=== PATIENT | female | born 1990 | race Caucasian/White ===

== ENCOUNTER 2019-08-15 13:02 | Emergency (ER) | payer BC, SELFPAY ==
[2019-08-15 13:22] VITALS: BP 141/95; PULSE 106; RESP 20; TEMP 36.7; O2SAT 98; BMI 32.1
--- NOTE | 2019-08-15 13:32 | HMH.EDUTC ---
[facility] [place] Disposition Clinical Impression: Cyst Disposition: Home, Self-Care Condition on Discharge: Good Additional Instructions: Follow up in ENT clinic tomorrow with Dr Moreno *Return if needed Straight to ER if any life threatening symptoms FOllow up with family doctor if needed Referrals: Calin Krishna MD [Primary Care Provider] - As needed Cesar Moreno MD [Staff Physician] - 08/16/19 12:30 pm Time of Disposition: 13:34 Medical Decision Making - Cl Inquiry Pt receiving controlled substance: No Cl was queried for this patient: No Vital Signs: 08/15/19 13:22 Temperature 98.0 F Temperature Source Oral Pulse Rate [Right Brachial] 106 H Respiratory Rate 20 Blood Pressure [Right Arm] 141/95 H Blood Pressure Mean [Right Arm] 110 Blood Pressure Source [Right Arm] Automatic Cuff Blood Pressure Position [Right Arm] Sitting 02 Sat by Pulse Oximetry 98 Oxygen Delivery Method Room Air - Physician Consults Physician Consulted: Josh Time: 13:37 Reason -: ENT Eval/Care Comment/Response: Spoke with La Lawson from Dr Elizabeth office about patient and finding patient given appointment on FridayAugust 15 at 1230 in the office [facility] [place] HPI - General Stated complaint: knot behind R ear Time Seen by Provider: 08/15/19 13:32 Mode of Arrival: Ambulatory Source of Information: Patient Limitations: No Limitations Description of Symptoms (Recalled from Triage Doc. by RN): Pt reports having an earache for a couple of hours and a mass on inferior mastoid procress that is no-movable, no other symptoms reports at this time. HEENT Symptoms (Recalled from RN notes): Yes Resp Symptoms (Recalled from RN notes): No Skin Symptoms (Recalled from RN notes): No MS Symptoms (Recalled from RN notes): No Functional Status (Recalled from RN notes): NA - History of Present Illness Provider Complaint: Patient states that she has pain on her right mastoid area a couple of weeks ago and then went away States that last night she noticed swollen hard area behind her right ear that is moveable States that it doesnt hurt or anything and not having any pain in her ear at this time but wanted to have it checked - Related Data Home Medications Medication Instructions Recorded Confirmed No Known Home Medications 03/02/18 03/02/18 Allergies Allergy/AdvReac Type Severity Reaction Status Date / Time No Known Allergies Allergy Verified 08/15/19 13:29 - Worker's Comp Is this a Worker's Comp case?: No H History - Hepatitis A Screen Drug use history?: No High risk sexual behaviors?: No History of sexually transmitted infection?: No Currently employed?: No Childcare worker?: No Do you have indoor plumbing?: Yes Do you have electricity?: Yes Attestation statement:: This patient has been screened for Hepatitis A risk factors. I have reviewed the patient's past medical history: Yes 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: Denies:: Cancer, Diabetes Mellitus Type 1, Diabetes Mellitus Type 2, MRSA Amputation: No Fractures: No - Social History Alcohol Intake: never ROS Obtained: Yes All systems reviewed & no additional complaints, Yes Systems reviewed as appropriate & no additional complaints - ENT Ears, Nose, Mouth, and Throat: Reports system reviewed and no additional complaints, except as docu - Cardiovascular Cardiovascular: Reports system reviewed and no additional complaints, except as docu - Respiratory Respiratory: Yes system reviewed and no additional complaints, except as docu - Gastrointestinal Gastrointestingal: Reports: system reviewed and no additional complaints, except as docu Physical Exam - General General appearance: alert, in no apparent distress - ENT ENT exam: Present: other (hard area noted on right mastoid bone, no redness no warmth) - Respiratory Respiratory exam: Present: normal lung sounds bilaterally. Absent: respiratory distress - Cardiovascular Cardiovascular exam: Present: tachycardia. Abs
[2019-08-15 13:50] VITALS: BP 140/71; PULSE 106; RESP 18; TEMP 36.7; O2SAT 100
== END 2019-08-15 13:52 | disposition home or self-care (01) ==
PROVIDERS: Emergency Provider Nurse Practitioner; PCP Family Medicine
DX: D23.21 Other benign neoplasm of skin of right ear and external auricular canal (principal)
CPT/HCPCS: 99201

== ENCOUNTER 2021-05-26 10:56 | Emergency (ER) | payer BC, SELFPAY ==
[2021-05-26 11:15] VITALS: BP 127/83; PULSE 68; RESP 18; TEMP 36.8; O2SAT 100; BMI 33.9
[2021-05-26 11:33] VITALS: BP 127/83; PULSE 68; RESP 18; TEMP 36.8; O2SAT 100
--- NOTE | 2021-05-26 11:45 | HMH.EDUTC ---
[facility] [place] Clinical Impression: Sinusitis Qualifiers: Sinusitis location: unspecified location Chronicity: unspecified Qualified Code(s): J32.9 - Chronic sinusitis, unspecified Disposition: Home, Self-Care Condition on Discharge: Good Instructions: Sinusitis, DI for Sinusitis Additional Instructions: *Monitor Temp, Over the counter Motrin or Tylenol as directed/as needed Tylenol every 4 hours and Motrin every 6 hours (as long as your family doctor has told you that you can take it) for fever or pain. and straight to ER if unable to lower temp less than 101.0 after medication given *Warm salt water gargles may help to soothe the throat *Throat Lozenges *Warm fluids like tea with honey may help to soothe the throat *Sleep elevated *Humidifier/Vaporizer *Flonase 2 sprays in each nostril daily but be aware that it may take 2-3 days before you notice improvement Follow up IMMEDIATELY for new or worsening symptoms or no Noticeable improvement over the next 48-72 hours. 911 for difficulty breathing or swallowing Prescriptions: Amoxicillin/Potassium Clav [Amox-Clav 875-125 mg Tablet] 1 tab PO BID #20 tab Transmission Status: Pending to Clinic [facility] predniSONE [Deltasone 10mg tablet] 10 mg PO BID 4 Days #8 tab Transmission Status: Pending to Clinic [facility] Referrals: Calin Krishna MD [Primary Care Provider] - As needed Time of Disposition: 11:59 Medical Decision Making - Cl Inquiry Pt receiving controlled substance: No Cl was queried for this patient: No Vital Signs: 05/26/21 11:15 05/26/21 11:33 Temperature 98.3 F 98.3 F Temperature Source Oral Pulse Rate 68 Pulse Rate [Right Brachial] 68 Respiratory Rate 18 18 Blood Pressure 127/83 Blood Pressure [Right Arm] 127/83 Blood Pressure Mean [Right Arm] 97 Blood Pressure Source [Right Arm] Automatic Cuff Blood Pressure Position [Right Arm] Sitting 02 Sat by Pulse Oximetry 100 Oxygen Delivery Method Room Air [facility] [place] - General Stated complaint: Congestion Time Seen by Provider: 05/26/21 11:45 Mode of Arrival: Ambulatory Source of Information: Patient Limitations: No Limitations Description of Symptoms (Recalled from Triage Doc. by RN): PATIENT C/O GREEN SINUS DRAINAGE, HEADACHE, EYE DISCHARGE, PRESSURE IN RIGHT EAR, AND SORE THROAT X 3 DAYS HEENT Symptoms (Recalled from RN notes): Yes Resp Symptoms (Recalled from RN notes): No Skin Symptoms (Recalled from RN notes): No MS Symptoms (Recalled from RN notes): No Functional Status (Recalled from RN notes): WNL - History of Present Illness Provider Complaint: Patient states that she has been having sinus pain and pressure and pain behind the eyes for close to a week if not longer and feels like she gets when she has a sinus infection States that it has continued to get worse so she came in today to get checked out - Related Data Home Medications Medication Instructions Recorded Confirmed NIFEdipine [Nifedipine ER] 30 mg PO DAILY 05/26/21 05/26/21 Previous Rx's Medication Instructions Recorded Amoxicillin/Potassium Clav 1 tab PO BID #20 tab 05/26/21 [Amox-Clav 875-125 mg Tablet] predniSONE [Deltasone 10mg tablet] 10 mg PO BID 4 Days #8 tab 05/26/21 Allergies Allergy/AdvReac Type Severity Reaction Status Date / Time No Known Allergies Allergy Verified 08/16/19 12:29 - Worker's Comp Is this a Worker's Comp case?: No [facility] History - Hepatitis A Screen Drug use history?: No High risk sexual behaviors?: No History of sexually transmitted infection?: No Currently employed?: No Childcare worker?: No Do you have indoor plumbing?: Yes Do you have electricity?: Yes Attestation statement:: This patient has been screened for Hepatitis A risk factors. I have reviewed the patient's past medical history: Yes 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: Reports:: Hypertension Denies:: Cancer, Diabetes Mellitus Type 1, Diabetes Mellitus Type 2, MRSA Laterality Cases: Bila
== END 2021-05-26 12:04 | disposition home or self-care (01) ==
PROVIDERS: Emergency Provider Nurse Practitioner; PCP Family Medicine
DX: J32.9 Chronic sinusitis, unspecified (principal); I10 Essential (primary) hypertension
CPT/HCPCS: 99212; G0463

== ENCOUNTER 2021-12-29 10:02 | Emergency (ER) | payer BC, SELFPAY ==
[2021-12-29 10:33] LABS: UTC Strep Screen (Rapid) Negative (Negative)
[2021-12-29 10:34] VITALS: BP 139/93; PULSE 101; RESP 18; TEMP 37.3; O2SAT 98; BMI 32.1
[2021-12-29 10:40] LABS: UTC Influenza A Antigen Negative (Negative); UTC Influenza B Antigen Negative (Negative)
--- NOTE | 2021-12-29 10:43 | EXP.UTC ---
Discharge Plan Disposition Patient Disposition: Home, Self-Care Condition: Good Prescriptions Prescriptions: New azithromycin [Zithromax] 250 mg tablet 250 mg PO UD DOSE PK Qty: 6 0RF Rx Instructions: Take two (2) tablets today, then one (1) tablet days #2 thru #5 No Action sulfamethoxazole-trimethoprim [Bactrim DS] 800-160 mg tablet 1 tab PO BID 10 Days Qty: 20 0RF nifedipine 30 mg tablet extended release 24hr See Rx Instructions .ROUTE .COMPLEX Rx Instructions: TAKE ONE TABLET BY MOUTH ONCE A DAY Referrals Follow up/Referrals: Chiara Tyson PA [Primary Care Provider] - See instructions Activity Restrictions/Add. Instructions Additional Instructions/Restrictions: Drink plenty of fluids. Take tylenol or ibuprofen for pain or fever. Take the medications as directed. Follow up with your regular doctor. GO TO THE ER FOR ANY WORSENING SYMPTOMS Clinical Impressions Clinical Impression: Sinusitis, Bronchitis Instructions Patient Instructions: Sinusitis, DI for Sinusitis Discharge ED Provider: [facility] [place] General Stated complaint: sore throat,achey body,fever,nausea Mode of Arrival: Ambulatory Source of Information: Patient Limitations: No Limitations Time Seen by Provider: 12/29/21 10:43 Description of Symptoms (Recalled from Triage Doc. by RN): pt here with c/o sore throat, hoarseness, fatigue, discoloration of mucus, body aches, nausea, fever, chills. at home covid test was negative. symptoms began friday morning HEENT Symptoms (Recalled from RN notes): Yes Resp Symptoms (Recalled from RN notes): Yes Skin Symptoms (Recalled from RN notes): No MS Symptoms (Recalled from RN notes): No Functional Status (Recalled from RN notes): n/a History of Present Illness Provider Complaint: She has been having sinus congestion and a scratchy throat for the past 3 days. Yesterday, she began having chest congestion and a cough also. She denies any fever or chills. She took a covid-19 test at home and it was negative. She is breast feeding an 8 month old baby. Related Data Home Medications Medication Instructions Recorded Confirmed nifedipine 30 mg tablet,extended See Rx Instructions .Route 12/29/21 12/29/21 release 24 hr .COMPLEX . Previous Rx's Medication Instructions Recorded sulfamethoxazole 800 1 tab PO BID 10 days #20 tabs 06/19/21 mg-trimethoprim 160 mg tablet (Bactrim DS) azithromycin 250 mg tablet 250 mg PO UD DOSE PK #6 tabs 12/29/21 (Zithromax) Allergies Allergy/AdvReac Type Severity Reaction Status Date / Time No Known Allergies Allergy Verified 12/29/21 10:38 Worker's Comp Is this a Worker's Comp case?: No PFSH PFSH Social History Smoking Status: Never smoker alcohol intake: never current occupational status: other Travel in the last 8 weeks: None ROS Obtained: Yes All systems reviewed & no additional complaints except as documented Constitutional Constitutional: Denies chills and Denies fever(s) Eyes Eyes: Denies eye discharge ENT Ears, Nose, Mouth, and Throat: Reports as per HPI Cardiovascular Cardiovascular: Denies chest pain Respiratory Respiratory: Denies chest congestion and Reports cough Gastrointestinal Gastrointestingal: Reports nausea; Denies abdominal pain, constipation, cramping, diarrhea or vomiting Musculoskeletal Musculoskeletal: Denies arthralgias Integumentary/Breasts Skin/Breast: Denies rash Neurologic Neurologic: Denies paresthesias Physical Exam General General appearance: alert and in no apparent distress Head Head exam: atraumatic, normocephalic and normal inspection Eye Eye exam: Present normal appearance, PERRL and EOMI ENT ENT exam: Present normal exam, normal oropharynx, mucous membranes moist, TM's normal bilaterally and normal external ear exam Neck Neck exam: Present normal inspection, full ROM and trachea midline; A
[2021-12-29 10:58] VITALS: BP 139/93; PULSE 101; RESP 18; TEMP 37.3
== END 2021-12-29 11:01 | disposition home or self-care (01) ==
PROVIDERS: Emergency Provider Nurse Practitioner Family; PCP Physician Assistant
DX: J02.9 Acute pharyngitis, unspecified (principal); R50.9 Fever, unspecified; M79.10 Myalgia, unspecified site; R53.82 Chronic fatigue, unspecified; R11.0 Nausea; Z20.822 Contact with and (suspected) exposure to COVID-19; Z79.899 Other long term (current) drug therapy
CPT/HCPCS: 87804; 87880; 99213; G0463

== ENCOUNTER 2022-02-17 14:15 | Emergency (ER) | payer BC, SELFPAY ==
[2022-02-17 15:15] VITALS: BP 143/90; PULSE 128; RESP 19; TEMP 37.8; O2SAT 98; BMI 32.7
--- NOTE | 2022-02-17 15:46 | EXP.UTC ---
Discharge Plan Disposition Patient Disposition: Home, Self-Care Condition: Good Referrals Follow up/Referrals: Chiara Tyson PA [Primary Care Provider] - See instructions Activity Restrictions/Add. Instructions Additional Instructions/Restrictions: Monitor temperature. Seek treatment if fever develops. Follow-up immediately if new or worse symptoms worsen or no noticeable improvement over 48 hours. Increase fluids such as water, Gatorade, Powerade, juice or Pedialyte with limited formula/dietary in children No food is okay as long as you are drinking. Once ready to eat start bland such as bananas, rice, applesauce, toast. Contagious until no diarrhea, vomiting, fever times 48 hours without medication Avoid antidiarrheals unless told otherwise. Best to let the virus run its course. Follow-up immediately for new or worsening symptoms or no noticeable improvement over the next 48 hours. Clinical Impressions Clinical Impression: Nausea & vomiting, Diarrhea Instructions Patient Instructions: Diarrhea, Nausea and Vomiting-Adult Discharge [facility] [place] HPI General Stated complaint: Fever, vomitting, diarreah, bodyaches Mode of Arrival: Ambulatory Source of Information: Patient Limitations: No Limitations Time Seen by Provider: 02/17/22 15:46 Description of Symptoms (Recalled from Triage Doc. by RN): PATIENT C/O NAUSEA, VOMITING, FEVER AND BODY ACHES SINCE YESTERDAY HEENT Symptoms (Recalled from RN notes): No Resp Symptoms (Recalled from RN notes): No Skin Symptoms (Recalled from RN notes): No MS Symptoms (Recalled from RN notes): No Functional Status (Recalled from RN notes): WNL History of Present Illness Provider Complaint: 31 yr old female presents for nausea,vomiting, fever and body aches since yesterday, son has had same illness since friday Related Data Allergies Allergy/AdvReac Type Severity Reaction Status Date / Time No Known Allergies Allergy Verified 12/29/21 10:38 Worker's Comp Is this a Worker's Comp case?: No [facility] Disclaimer: The information contained in this section may have been updated after the patient was seen, as this information can be updated by other users. 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) Smoking Status: Never smoker alcohol intake: never current occupational status: other Travel in the last 8 weeks: None ROS Obtained: Yes All systems reviewed & no additional complaints except as documented Constitutional Constitutional: Reports system reviewed and no additional complaints, except as documented, Reports as per HPI, Reports body ache and Reports fever(s) Eyes Eyes: Reports system reviewed and no additional complaints, except as documented ENT Ears, Nose, Mouth, and Throat: Reports system reviewed and no additional complaints, except as documented and Reports as per HPI Cardiovascular Cardiovascular: Reports system reviewed and no additional complaints, except as documented Respiratory Respiratory: Reports system reviewed and no additional complaints, except as documented Gastrointestinal Gastrointestingal: Reports system reviewed and no additional complaints, except as documented, as per HPI, diarrhea, nausea and vomiting Genitourinary Female Genitourinary: Reports system reviewed and no additional complaints, except as documented Musculoskeletal Musculoskeletal: Reports system reviewed and no additional complaints, except as documented Integumentary/Breasts Skin/Breast: Reports system reviewed and no additional complaints, except as documented Neurologic Neurologic: Reports system reviewed and no additional complaints, except as documented Endocrine Endocrine: Reports system revie
[2022-02-17 15:55] LABS: Adenovirus,PCR Not Detected (NotDetected); Bordetella Pertussis Not Detected (NotDetected); Chlamydophila Pneumoniae, PCR Not Detected (NotDetected); Coronavirus 19, PCR Not Detected (NotDetected); Coronavirus 229E Not Detected (NotDetected); Coronavirus NL63 Not Detected (NotDetected); Coronavirus OC43 Not Detected (NotDetected); Coronovirus HKU1,PCR Not Detected (NotDetected); Human Metapneumovirus Not Detected (NotDetected); Influenza A, PCR Not Detected (NotDetected); Influenza AH1, 2009 Not Detected (NotDetected); Influenza AH1, PCR Not Detected (NotDetected); Influenza AH3,PCR Not Detected (NotDetected); Influenza B, PCR Not Detected (NotDetected); Mycoplasma Pneumoniae, PCR Not Detected (NotDetected); Parainfluenza 1, PCR Not Detected (NotDetected); Parainfluenza 2, PCR Not Detected (NotDetected); Parainfluenza 3, PCR Not Detected (NotDetected); Parainfluenza 4, PCR Not Detected (NotDetected); Respiratory Syncytial Virus Not Detected (NotDetected); Rhinovirus/Enterovirus Not Detected (NotDetected)
[2022-02-17 15:58] VITALS: BP 143/90; PULSE 128; RESP 19; TEMP 37.8; O2SAT 98
== END 2022-02-17 16:04 | disposition home or self-care (01) ==
PROVIDERS: Emergency Provider Nurse Practitioner Family; PCP Physician Assistant
DX: R11.2 Nausea with vomiting, unspecified (principal); R19.7 Diarrhea, unspecified
CPT/HCPCS: 87581; 87632; 87798; 99212; C9803; G0463; U0003; U0005

== ENCOUNTER → 2023-01-07 12:34 | Outpatient (CLI) | payer BC, SELFPAY ==
--- NOTE | 2023-01-07 12:34 | US_ITS ---
PROCEDURE INFORMATION: Exam: US Right Breast, Complete, Screening US Left Breast, Complete, Screening MG Bilateral Screening 3D Mammography Exam date and time: 01/07/2023 1:28 PM Age: 32 years old Clinical indication: Screening examination; Family history of breast cancer in aunt; Family history of breast cancer; Additional info: Right breast pain, f/h breast cancer TECHNIQUE: Imaging protocol: Complete ultrasound of all four quadrants of the right breast and the retroareolar regions, including ultrasound of the axilla when performed. Complete ultrasound of all four quadrants of the left breast and the retroareolar regions, including ultrasound of the axilla when performed. Bilateral Screening tomosynthesis and 2D mammography including computer-aided detection (CAD) when performed. COMPARISON: MG MM DIG SCREENING MAMM BI W/CAD 01/07/2023 12:59 PM FINDINGS: MAMMOGRAPHY: The breast is heterogeneously dense, which may obscure small masses. Calcifications within the upper inner anterior right breast should be assessed with spot MAGNIFICATION views in CC/ML projection for morphologic characterization. No suspicious findings are present within the left breast No axillary adenopathy ULTRASOUND: Bilateral 4 quadrant and retroareolar as well as bilateral axilla ultrasound the the Only normal glandular structures are present in the regions assessed No suspicious solid or cystic mass is present. No benign-appearing solid or cystic mass is present. No architectural distortion or shadowing is present. No axillary adenopathy is present. IMPRESSION: Calcifications within the upper inner anterior right breast should be assessed with spot MAGNIFICATION views in CC/ML projection for morphologic characterization. ASSESSMENT: Screening mammogram BIRADS: BI-RADS 0, incomplete, needs additional imaging evaluation Overall BIRADS: BI-RADS 0, incomplete, needs additional imaging evaluation
== END ==
LOC: RAD 12:34
PROVIDERS: PCP Physician Assistant; Visit Provider Physician Assistant
DX: N64.4 Mastodynia (principal); Z80.3 Family history of malignant neoplasm of breast
CPT/HCPCS: 76641; 77063; 77067

== ENCOUNTER → 2023-02-04 13:58 | Outpatient (CLI) | payer BC, SELFPAY ==
--- NOTE | 2023-02-04 13:58 | MM_ITS ---
PROCEDURE INFORMATION: Exam: MG Right Diagnostic Breast Tomosynthesis Exam date and time: 02/04/2023 1:47 PM Age: 32 years old Clinical indication: Patient recalled on the basis of a screening mammogram for further evaluation; Right breast; calcifications TECHNIQUE: Imaging protocol: Right Diagnostic tomosynthesis and 2D mammography including computer-aided detection (CAD) when performed. Unilateral or bilateral exam. COMPARISON: MG MM DIG SCREENING MAMM BI W/CAD 01/07/2023 12:59 PM FINDINGS: MAMMOGRAPHY: Digital diagnostic magnification views of the anterior right upper outer quadrant demonstrate benign dermal calcifications. IMPRESSION: No mammographic evidence of malignancy. Benign calcifications.Annual bilateral mammographic screening is recommended unless otherwise clinically indicated. ASSESSMENT: BI-RADS Category 2: Benign
== END ==
LOC: RAD 13:58
PROVIDERS: PCP Physician Assistant; Visit Provider Physician Assistant
DX: R92.8 Other abnormal and inconclusive findings on diagnostic imaging of breast (principal)
CPT/HCPCS: 77061; 77065; G0279

== ENCOUNTER 2024-12-31 09:59 | Outpatient (CLI) | payer BC, SELFPAY ==
--- OUTSIDE RECORDS SUMMARY | 2025-01-03 10:10 | XMS_ITS | Clinical Summary ---
Author Organization [facility] Address [address] [place] [address] Care Team Providers Care Yoke Setter Name Role Phone Chiara Tyson Primary Care Provider [phone] Allergies No known active allergies Medications NIFEdipine XL (PROCARDIA XL) 30 MG 24 hr tablet Take 1 tablet by mouth Daily. 30 tablet 6 10/17/2020 Active Active Problems Problem Noted Date Diagnosed Date Personal history of kidney stones Overview (02/20/2021): x3 Resolved Problems Problem Noted Date Diagnosed Date Resolved Date 04/26/2021 06/12/2021 Chronic hypertension affecting 10/17/2020 05/04/2021 Overview (03/27/2021): Baseline 24h urine, PEP Baby asa 12 wks Switch amlodipine to nifedipine 30 xl at nob NSTs 32-34 wks, del 37 wks- induction is scheduled PDC jeffrey US EFW 28 wks 71%ile, 32 wks 67%ile hydronephrosis during , antepartum 06/12/2021 Overview (03/20/2021): Mild at 28 wks, repeat 32 wks at PDC- RESOLVED Immunizations Immunization Administration Dates Next Due MMR 04/28/2021() Tdap 02/20/2021 Family History 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 Relation Name Comments Hypertension Brother Jeramie howe Hypertension Father Jeramie howe Breast cancer Maternal Aunt 1 Rhonda Breast cancer Maternal Aunt 2 Sarah [place] Diabetes Maternal Grandfather Raul Viveros Type 2 non-insulin independent - Breast cancer Paternal Aunt Relation Name Status Comments Brother Jeramie howe Father Jeramie howe Maternal Aunt 1 Rhonda Maternal Aunt 2 Sarah [place] Maternal Grandfather Raul Viveros Paternal Aunt Social History Tobacco Use Types Packs/Day Years Used Date Smoking Tobacco: Never Smokeless Tobacco: Never Alcohol Use Standard Drinks/Week Comments Not Currently 0 (1 standard drink = 0.6 oz pure alcohol) Nothing consistent, social gatherings/weddings/vacations AUDIT-C Answer Date Recorded Q1: How often do you have a drink containing alc ohol? Never 10/17/2020 Average Number of Drinks Not on file 021 Frequency of Binge Drinking Not on file 10/08 [place] Depression Scale Answer Date Recorded [place] Depression Scale Total 2 06/12/2021 The thought of harming myself has occurred to me . Never 06/12/2021 Abuse Screen Answer Date Recorded Unsafe at Home or Work/School Not on file Feels Threatened by Someone? Not on file 02/2023 Does Anyone Keep You from Co ntacting Others or Doint Things Outside the Home? Not on file 12/19/2022 Physical Sign of Abuse Present Not on file 1 Housing Stability Answer Date Recorded Current Living Arrangements Not on file 12/08 Potentially Unsafe Housing Conditions Not on juan e 12/19/2022 Family and Community Support Answer Leonardo e Recorded Help with Day-to-Day Activities Not on file 12/19/2022 Lonely or Isolated Not on file 12/19/2022 Employment Answer Date Recorded Do you want help finding or keeping work or a francisco javier b? Not on file 12/19/2022 Disabilities Answer Date Recorded Concentrating, Remembering, or Making Decisions Difficulty Not on file 12/19/2022 Doing Errands Independently Difficulty Not on fi le 12/19/2022 Education Answer Date Recorded Help with school or training? Not on file Preferred Language Not on file 12/19/2022 Comments Unknown Sex and Gender Information Value Date Recorded Sex Assigned at Not on file Legal Sex Female 9:13 AM EST Gender Identity Not on file Sexual Orientation Not on file Last Filed Vital Signs Vital Sign Reading Time Taken Comments Blood Pressure 130/90 09/16/2023 3:43 PM EDT Pulse 108 04/28/2021 11:33 AM EST Temperature 36.9 C (98.4 F) 04/28/2021 11:27 AM EST Respiratory Rate 18 04/28/2021 11:27 AM EST Oxygen Saturation 99% 04/28/2021 11:27 AM EST Inhaled Oxygen Concentration - - Weight 104 kg (228 lb 3.2 oz) 09/16/2023 3:43 PM EDT Height 170.2 cm (5' 7 ) 09/16/2023 3:43 PM EDT Body Mass Index 35.74 09/16/2023 3:43 PM EDT Plan of Treatment Health Maintenance Due Date Last Done Comments ANNUAL PHYSICAL 09/21/2020 Annual Gynecologic Pelvic an d Breast Exam 09/16/2024 09/16/2023, 10/17/2020 INFLUENZA VACCINE 10/08/2024 TDAP/TD VACCINES (2 - Td or Tdap) 02/20/2031 02/20/2021 HEPATITIS C SCREENING Completed 10/17/2020 Pneumococcal Vaccine 0-49 Aged Out No longer eligible based on patient's age to complete this topic Procedures Procedure Name Priority Date/Time Associated Diagnosis Comments OB PANEL WITH HIV AND RPR Routine 10/17/2020 4:26 PM EDT 10 weeks gestation of SCANNED - PAP SMEAR 10/17/2020 from Last 3 Months or Most Recently Relevant to Health Maintenance Results * (ABNORMAL) OB Panel With HIV (10/17/2020 4:26 PM EDT) Hepatitis B Surface Ag Negative Negative [facility] Hep C Virus Ab <0.1 0.0 - 0.9 s/co ratio [facility] Comment: Negative: < 0.8 Indeterminate: 0.8 - 0.9 Positive: > 0.9 The CDC recommends that a positive HCV antibody result be followed up with a HCV Nucleic Acid Amplification test (315471). RPR Non Reactive Non Reactive [facility] Rubella Antibodies, IgG <0.90(L) Immune >0.99 index [facility] Comment: Non-immune <0.90 Equivocal 0.90 - 0.99 Immune >0.99 ABO Type A [facility] Rh Factor Positive [facility] Comment: Please note: Prior records for this patient's ABO / Rh type are not available for additional verification. Antibody Screen Negative Negative [facility] HIV Screen 4th Gen w/RFX (Reference) Non Reactive Non Reactive [facility] Blood 10/17/2020 4:26 PM EDT 10/18/2020 Narrative [facility] (AMBULATORY) - 10/20/2020 6:35 PM EDT Performed at: - [facility] [address] [place] [id number] Group Controller: Kaushal Brown PhD, Phone: [phone] us Marcella Temple MD LAB BLOOD ORDERABLES Final Resul t [facility] (AMBULATORY) [address] [id number], [facility] [address] [place] [address], * SCANNED - PAP SMEAR (10/17/2020) us Marcella Temple MD CHART REVIEW TABS Final Resul t from Last 3 Months or Most Recently Relevant to Health Maintenance Insurance [employer] Advance Directives * CPR (Attempt to Resuscitate) (Latest Code Status on File) Date Activated Date Inactivated Comments 04/26/2021 9:43 PM 04/28/2021 5:03 PM Question Answer Comments Code Status (Patient has no pulse and is not breathing): CPR (Attempt to Resuscitate) Medical Interventions (Patie nt has pulse or is breathing): Full Care Teams Yoke Setter Relationship Specialty Start Date End Date Chiara Tyson PA PCP - General Physician Safety Engineer Pressure Vessels 07/07/23
--- OUTSIDE RECORDS SUMMARY | 2025-01-03 10:10 | XMS_ITS | Patient Health Record ---
[facility] Address [address] [facility] [address] [place] [id number] Care Team Providers Care Engineer Fishing Vessel Name Role Phone Calin Krishna Primary Care Provider Reason For Referral No Information Medications Medication SIG (Take, Route, Frequency, Duration) Notes Start Date End Date Status amLODIPine Besylate 5 MG 1 tab(s) orally once a day; Duration: 30 Active Immunizations Vaccine Route Administration Date Status Comme nts COVID 19 Pfizer Unknown 11/16/2020 Administered Problems Problem Type SNOMED Code ICD Code Onset Dates Problem Status W/U Status Risk Notes Problem Essential hypertension (04662462) Essential hypertension (I10) Active confirmed Problem Obesity (884877837) Non morbid obesity (E66.9) Active confirmed Plan Of Treatment No Information Insurance Providers Payer Name Payer Address Payer Phone Subscriber Number Group Number Insured Name Patient Relationship to Insured Coverage Start Date Coverage End Date [employer] [address] [place] [address] [id number] GASTON JOSÉ Self - patient is the insured Medical (General) History 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 History ICD Code kidney stones Surgical History Surgery Date(Month/Year) Bilateral Ear Tubes Cyst Removal - Left Ovary - Dermoid 2019 Hospitalization History Reason Date(Month/Year) Sepsis- Kidney Stones Feb 2018
== END 2024-12-31 23:59 ==
LOC: LAB.DROPOF 01-03 10:03
PROVIDERS: PCP Physician Assistant; Visit Provider Nurse Practitioner
DX: R35.0 Frequency of micturition (principal)
CPT/HCPCS: 87086; 87088; 87186